=== PATIENT | female | born 1960 | race African-American/Black ===

== ENCOUNTER 2017-12-01 19:23 | Inpatient (IN) | payer MEDICARE ==
[~2017-12-01] VITALS: Ht 177.8 cm; Wt 99.8 kg
[~2017-12-01 19:23] MED LIST: ALPRAZOLAM0.25 MG PO; AMLODIPINE BESY10 MG PO; Aspirin PO; CEFDINIR300 MG PO; CRESTOR20 MG PO; CYCLOBENZAPRINE10 MG PO; IPRATROPIU0.2 MG/1 M NEB; LIDOCAINE1 EA TP; LISINOPRIL10 MG PO; NORCO 10-325 T1 EACH PO; NORCO 5-325 TA1 EACH PO; PANTOPRAZOLE SO40 MG PO; PAZEO OP; PREDNISONE20 MG PO; QUETIAPINE FUM100 MG PO; SYNTHROID100 MCG PO; TOPROL XL50 MG PO; TRIAMTERENE-HCTZ1 EA PO; VALACYCLOVIR1000 MG PO
[2017-12-01] MEDS ORDERED: ALBUTEROL SULF 0.083% NEB SOLN 3 ML NEB NEB STA (19:30)
[2017-12-01] MEDS ORDERED: CEFTRIAXONE SOD 1 GM VIAL IV ONE (19:30)
[2017-12-01] MEDS ORDERED: ASPIRIN 81 MG CHEW TAB PO ONE ×2 (19:30→20:15)
[2017-12-01] MEDS ORDERED: SODIUM CHLORIDE 0.9% 500ML 500 ML IV STA (19:30)
[2017-12-01 19:46] LABS: BASOPHILS # (AUTO) 0.1 (0.0-0.1); BASOPHILS % 0.8 % (0.0-1.0); EOSINOPHILS # (AUTO) 0.2 (0.0-0.4); EOSINOPHILS % 2.2 % (0.0-6.0); HEMATOCRIT 42.3 % (34.2-44.1); HEMOGLOBIN 13.7 g/dL (12.0-16.0); LYMPHOCYTES # (AUTO) 3.2 (1.0-3.2); LYMPHOCYTES % 29.6 % (18.0-39.1); MEAN CORPUSCULAR HEMOGLOBIN 32.6 pg (28-32); MEAN CORPUSCULAR HGB CONC 32.4 g/dL (31-35); MEAN CORPUSCULAR VOLUME 100.7 fL (81-99); MONOCYTES % 9.3 % (4.4-11.3); NEUTROPHILS # (AUTO) 6.3 (2.1-6.9); NEUTROPHILS % 57.6 % (38.7-80.0); PLATELET COUNT 313 x10e3/uL (140-360); RED CELL DISTRIBUTION WIDTH 12.4 % (11.7-14.4)
[2017-12-01] MEDS ORDERED: IPRATROPIUM BROMIDE 0.02% 2.5 ML NEB NEB ONE (20:00)
[2017-12-01] MEDS ORDERED: AZITHROMYCIN 500MG/NS 250 ML 250 ML IV ONE (20:00)
[2017-12-01 20:07] LABS: INR 0.96; PARTIAL THROMBOPLASTIN TIME 25.9 seconds (23.8-35.5)
[2017-12-01] MEDS ORDERED: METHYLPREDNISOLONE SOD SUCC 125 MG/2ML VIAL IV ONE (20:15)
[2017-12-01] MEDS ORDERED: ONDANSETRON HCL INJ 2 MG/ML VIAL IV PRN (20:15)
[2017-12-01] MEDS ORDERED: FAMOTIDINE 20 MG/2 ML VIAL IV SCH (20:15)
[2017-12-01 20:16] LABS: ALBUMIN 3.8 g/dL (3.5-5.0); ALBUMIN/GLOBULIN RATIO 0.9 (0.8-2.0); ANION GAP 17.2 mmol/L (8-16); CALCIUM 9.7 mg/dL (8.4-10.2); CREATININE, SERUM 1.13 mg/dL (0.57-1.11); MAGNESIUM 2.1 MG/DL (1.3-2.1); POTASSIUM 4.2 mmol/L (3.5-5.1)
[2017-12-01 20:22] LABS: CREATINE KINASE MB 1.4 ng/mL (0-5.0); PLATELET ESTIMATE ADEQUATE; PLATELET MORPHOLOGY COMMENT NORMAL; RBC MORPHOLOGY COMMENT NORMAL
--- NOTE | 2017-12-01 21:36 | Diagnostic Imaging Report ---
EXAMINATION: CHEST 2 VIEWS INDICATION: COPD. COMPARISON: 07/04/2016 FINDINGS: TUBES and LINES: None. LUNGS: Lungs are not well inflated. There are bibasilar atelectasis. There is mild prominence of the central pulmonary vasculature, consistent with pulmonary venous congestion. PLEURA: No pleural effusion or pneumothorax. HEART AND MEDIASTINUM: Cardiac size is mildly enlarged. BONES AND SOFT TISSUES: No acute osseous lesion. Soft tissues are unremarkable. UPPER ABDOMEN: No free air under the diaphragm. IMPRESSION: No acute thoracic abnormality. Signed by: Dr. Ian Frederick M.D. on 12/01/2017 9:33 PM
[2017-12-01 22:49] VITALS: BP 132/76
[2017-12-01 23:10] VITALS: BP 132/76
[2017-12-01] MEDS: IPRATROPIUM BROMIDE 0.02% 2.5 ML NEB NEB SCH (23:25)
[2017-12-01] MEDS: ALBUTEROL SULF 0.083% NEB SOLN 3 ML NEB NEB SCH (23:25)
[2017-12-02] VITALS (9 sets, daily range): BP systolic 132–178; BP diastolic 74–101
[2017-12-02] MEDS: BENZONATATE 100 MG CAP PO PRN ×2 (01:11→11:00)
[2017-12-02] MEDS: HYDROCODONE/APAP 5MG-325MG TAB PO PRN ×3 (01:11→21:52)
[2017-12-02 01:50] LABS: BILIRUBIN,URINE NEGATIVE (NEGATIVE); CLARITY,URINE CLEAR (CLEAR); COLOR,URINE YELLOW (YELLOW); KETONES,URINE NEGATIVE (NEGATIVE); LEUKOCYTE ESTERASE ,URINE NEGATIVE (NEGATIVE); NITRITE,URINE NEGATIVE (NEGATIVE); PROTEIN,URINE DIPSTICK NEGATIVE (NEGATIVE); URINE UROBILINOGEN 0.2 mg/dL (0.2 - 1)
[2017-12-02 01:56] LABS: BACTERIA,URINE MANY /HPF; EPITHELIAL CELLS,URINE FEW /LPF
[2017-12-02] MEDS: IPRATROPIUM BROMIDE 0.02% 2.5 ML NEB NEB SCH ×6 (03:00→23:20)
[2017-12-02] MEDS: ALBUTEROL SULF 0.083% NEB SOLN 3 ML NEB NEB SCH ×2 (03:00→07:55)
[2017-12-02 05:40] LABS: BLOOD UREA NITROGEN 16 mg/dL (7-26); BUN/CREATININE RATIO 16 (6-25); CALCIUM 9.4 mg/dL (8.4-10.2); CARBON DIOXIDE 23 mmol/L (22-29); CHLORIDE 101 mmol/L (98-107); CHOL/HDL RATIO 4.3 (3.0-3.6); CHOLESTEROL 191 MD/DL (0-199); CREATININE, SERUM 0.99 mg/dL (0.57-1.11); EST GLOMERULAR FILTRATION RATE > 60 ML/MIN (60-); GLUCOSE 190 mg/dL (74-118); HDL CHOLESTEROL 44 MG/DL (40-60); LDL CHOLESTEROL 127 MG/DL (60-130); SODIUM 138 mmol/L (136-145); TRIGLYCERIDES 102 MG/DL (0-149)
[2017-12-02] MEDS ORDERED: METHYLPREDNISOLONE SOD SUCC 125 MG/2ML VIAL IV SCH (06:00)
[2017-12-02 06:36] LABS: BASOPHILS % 0.3 % (0.0-1.0); HEMATOCRIT 40.2 % (34.2-44.1); HEMOGLOBIN 13.3 g/dL (12.0-16.0); LYMPHOCYTES # (AUTO) 1.5 (1.0-3.2); LYMPHOCYTES % 10.1 % (18.0-39.1); MEAN CORPUSCULAR HGB CONC 33.1 g/dL (31-35); MEAN CORPUSCULAR VOLUME 99.8 fL (81-99); MONOCYTES # (AUTO) 0.2 (0.2-0.8); MONOCYTES % 1.4 % (4.4-11.3); NEUTROPHILS % 87.5 % (38.7-80.0); PLATELET COUNT 304 x10e3/uL (140-360); RED BLOOD COUNT 4.03 x10e6/uL (3.6-5.1)
[2017-12-02 07:04] LABS: CREATINE KINASE MB 1.4 ng/mL (0-5.0)
[2017-12-02] MEDS: ASPIRIN 81 MG ENTERIC COATED PO SCH (10:18)
[2017-12-02] MEDS: QUETIAPINE FUMARATE 100 MG TAB PO SCH (10:18)
[2017-12-02] MEDS: LISINOPRIL 20 MG TAB PO SCH (10:18)
[2017-12-02] MEDS: ALPRAZOLAM 0.25 MG TAB PO SCH (11:00)
[2017-12-02] MEDS ORDERED: DEXTROSE 50% SYRINGE 50 ML IV PRN (12:15)
[2017-12-02] MEDS ORDERED: HYDRALAZINE HCL 20 MG/ML VIAL IV PRN (12:15)
[2017-12-02 12:36] LABS: CREATINE KINASE MB 1.9 ng/mL (0-5.0)
[2017-12-02] MEDS: GUAIFENESIN 600MG/DEXTROMETHORPHAN 30MG TABSR PO SCH ×2 (12:50→17:00)
[2017-12-02] MEDS: METHYLPREDNISOLONE SOD SUCC 40 MG/ML VIAL IV SCH ×2 (13:02→21:26)
[2017-12-02] MEDS ORDERED: BENZONATATE 100 MG CAP PO PRN (14:00)
--- NOTE | 2017-12-02 15:43 | History and Physical ---
PRIMARY CARE PROVIDER: Dr. Pineda Agustin. CHIEF COMPLAINT: Shortness of breath. HISTORY OF PRESENT ILLNESS: Ms. Patel is a 57-year-old lady presenting with several days of worsening shortness of breath, wheezing and hacking cough that is producing small amounts of sputum. REVIEW OF SYSTEMS: She denies fever, chills or weight loss. Denies sinus congestion or sore throat. She denies chest pain or palpitations. She has shortness of breath, wheezing and cough. She denies abdominal pain, nausea, vomiting or melena. She denies dysuria or flank pain. She denies rash or pruritus. Denies joint pain or swelling. Has chronic low back pain. She denies bleeding or bruising. She denies headache, vertigo or loss of consciousness. She denies depression, agitation, homicidal or suicidal ideation. She does have anxiety issues. PAST MEDICAL HISTORY: Significant for hypertension, generalized anxiety disorder, degenerative disease of the spine and COPD. CURRENT MEDICATIONS: Lisinopril 20 mg daily. Hydrocodone 5/325 as needed. Alprazolam 0.25 mg daily. Seroquel 50 mg daily. Protonix 40 mg daily. Nebulizer treatments q.4 hours. Aspirin 325 mg daily. ALLERGIES: SHE HAS A STATED ALLERGY TO MORPHINE. PAST SURGICAL HISTORY: She has a history of cholecystectomy, hernia repair. She had knee surgery and bilateral rotator cuff surgery. FAMILY HISTORY: Significant for scattered hypertension. SOCIAL HISTORY: The patient is . Hebrew is her primary language. She quit smoking 2 years ago. She does not drink or use illegal drugs. She is generally independently functioning. PHYSICAL EXAM: PSYCHIATRIC: She is alert and oriented times 3 with normal mood and affect. CONSTITUTIONAL: She has a normal body habitus. Is in no acute distress. VITAL SIGNS: Blood pressure 172/101. Pulse 109 and regular. Respiratory rate 20. O2 sat 93% on 2 liter nasal cannula. Temperature 97.3. HEENT: Head is atraumatic. Eyes are anicteric with clear conjunctivae. Ears and nares are without erythema or discharge. Oropharynx is clear. NECK: Supple with no mass or thyromegaly. LYMPHATIC SYSTEM: She has no palpable cervical, axillary or inguinal adenopathy. CARDIOVASCULAR: She has a regular rate and rhythm without murmur or extra heart sounds. No carotid bruits. No peripheral edema. She has weak dorsal pedal pulses. RESPIRATORY: Lungs revealed diminished breath sounds with some expiratory wheezing particularly end expiration with hacking nonproductive cough. Normal respiratory effort. GASTROINTESTINAL: Her abdomen is soft without organomegaly, masses or tenderness. Normal bowel sounds present. CUTANEOUS: Her skin is warm and dry to touch with no rash or skin breakdown. MUSCULOSKELETAL: Joints are in normal alignment without erythema or swelling. She has no calf tenderness. NEUROLOGIC: Exam is nonfocal with intact cranial nerves and no motor or sensory deficits. DIAGNOSTIC STUDIES: Chest x-ray shows no acute disease. UA shows 6 to 10 white cells with many bacteria. Lactic acid is 38, which is elevated. BNP 16.0. Cholesterol 191. Triglyceride 102. HDL 44. LDL 127. Troponin is 0.005 and 0.003. Her white count is 14.8, which is elevated with 88% neutrophils. Hemoglobin 13.3, hematocrit 40.2 and platelet count 304,000. Coags are normal. Chemistry shows normal electrolytes. CO2 is 23. Creatinine 0.99. BUN 16 for a normal GFR. Calcium is 9.4. Glucose is 190. Transaminases, bilirubin and alk phos are all normal. IMPRESSION AND PLAN 1. Sepsis, meets criteria based on elevated white count, tachycardia and lactic acid elevation. The patient will be treated empirically with IV Zithromax and Rocephin for bronchopneumonia, COPD and for urinary tract infection. 2. Acute exacerbation of chronic obstructive pulmonary disease. The patient will get supplemental oxygen, aggressive nebulizer treatments, IV Solu-Medrol as well as IV Zithromax, Rocephin and Mucinex for expectoration. 3. Urinary tract infection. The patient was started on IV Rocephin empirically with cultures pending. 4. Hypertension which is reasonably controlled. Will continue her lisinopril and p.r.n. hydralazine. 5. Anxiety. Will continue her Xanax and Seroquel. 6. Hyperglycemia, likely due to steroids. Will use sliding scale insulin and check an A1c. 7. For prophylaxis, the patient will be on SCDs for DVT prophylaxis and Pepcid for GI prophylaxis. Job#: [id number]
[2017-12-02] MEDS: METOPROLOL TARTRATE INJ 1 MG/ML VIAL IV PRN (16:10)
[2017-12-02] MEDS: FAMOTIDINE 20 MG TAB PO SCH (16:36)
[2017-12-02] MEDS: INSULIN REGULAR, HUMAN 100 UNIT/1 ML 3ML VIAL SQ SCH ×2 (16:36→21:26)
[2017-12-02] MEDS: AZITHROMYCIN 500MG/NS 250 ML 250 ML IV SCH (19:05)
[2017-12-02] MEDS: ALBUTEROL/IPRATROPIUM 3 ML NEB NEB SCH ×2 (19:40→23:20)
[2017-12-02] MEDS ORDERED: CEFTRIAXONE SOD 1 GM VIAL IV SCH (20:00)
[2017-12-02] MEDS: CEFTRIAXONE SOD 1 GM VIAL IV SCH (21:25)
[2017-12-02] MEDS: ZOLPIDEM TARTRATE 10 MG TAB PO PRN (21:49)
[2017-12-03] VITALS (7 sets, daily range): BP systolic 133–169; BP diastolic 65–97
[2017-12-03] MEDS: GUAIFENESIN 600MG/DEXTROMETHORPHAN 30MG TABSR PO SCH ×4 (00:21→18:10)
[2017-12-03] MEDS: ALBUTEROL/IPRATROPIUM 3 ML NEB NEB SCH ×6 (03:15→22:55)
[2017-12-03] MEDS: IPRATROPIUM BROMIDE 0.02% 2.5 ML NEB NEB SCH ×6 (03:15→23:00)
[2017-12-03 05:14] LABS: BASOPHILS # (AUTO) 0.1 (0.0-0.1); BASOPHILS % 0.2 % (0.0-1.0); HEMATOCRIT 39.8 % (34.2-44.1); HEMOGLOBIN 13.1 g/dL (12.0-16.0); LYMPHOCYTES # (AUTO) 1.6 (1.0-3.2); LYMPHOCYTES % 5.1 % (18.0-39.1); MEAN CORPUSCULAR HEMOGLOBIN 33.1 pg (28-32); MEAN CORPUSCULAR HGB CONC 32.9 g/dL (31-35); MEAN CORPUSCULAR VOLUME 100.5 fL (81-99); MONOCYTES # (AUTO) 1.7 (0.2-0.8); MONOCYTES % 5.6 % (4.4-11.3); NEUTROPHILS # (AUTO) 26.9 (2.1-6.9); NEUTROPHILS % 87.2 % (38.7-80.0); PLATELET COUNT 302 x10e3/uL (140-360); RED BLOOD COUNT 3.96 x10e6/uL (3.6-5.1); RED CELL DISTRIBUTION WIDTH 12.1 % (11.7-14.4)
[2017-12-03 05:46] LABS: ANION GAP 17.1 mmol/L (8-16); BLOOD UREA NITROGEN 19 mg/dL (7-26); BUN/CREATININE RATIO 18 (6-25); CALCIUM 9.6 mg/dL (8.4-10.2); CARBON DIOXIDE 24 mmol/L (22-29); CHLORIDE 99 mmol/L (98-107); CREATININE, SERUM 1.03 mg/dL (0.57-1.11); EST GLOMERULAR FILTRATION RATE > 60 ML/MIN (60-); GLUCOSE 269 mg/dL (74-118); MAGNESIUM 1.9 MG/DL (1.3-2.1); POTASSIUM 4.1 mmol/L (3.5-5.1); SODIUM 136 mmol/L (136-145)
[2017-12-03 05:58] LABS: THYROID STIMULATING HORMONE 0.237 uIU/mL (0.350-4.940)
[2017-12-03] MEDS: METHYLPREDNISOLONE SOD SUCC 40 MG/ML VIAL IV SCH ×2 (06:26→18:10)
[2017-12-03] MEDS: FAMOTIDINE 20 MG TAB PO SCH ×2 (07:56→16:30)
[2017-12-03] MEDS: INSULIN REGULAR, HUMAN 100 UNIT/1 ML 3ML VIAL SQ SCH ×4 (08:06→21:36)
[2017-12-03] MEDS ORDERED: ACETAMINOPHEN 325 MG TAB PO PRN (08:15)
[2017-12-03] MEDS ORDERED: ACETYLCYSTEINE 20% INHAL SOLN 30 ML VIAL INH SCH (08:30)
[2017-12-03 08:59] LABS: LYMPHOCYTES % (MANUAL) 7 % (19-48); MONOCYTES % (MANUAL) 5 % (3.4-9.0); NEUTROPHILS % (MANUAL) 88 % (40-74); PLATELET ESTIMATE ADEQUATE; PLATELET MORPHOLOGY COMMENT NORMAL; RBC MORPHOLOGY COMMENT NORMAL
[2017-12-03 09:00] LABS: ANISOCYTOSIS SLIGHT
[2017-12-03] MEDS: CEFTRIAXONE SOD 1 GM VIAL IV SCH ×2 (09:19→21:26)
[2017-12-03] MEDS: QUETIAPINE FUMARATE 100 MG TAB PO SCH (09:19)
[2017-12-03] MEDS: ASPIRIN 81 MG ENTERIC COATED PO SCH (09:19)
[2017-12-03] MEDS: ALPRAZOLAM 0.25 MG TAB PO SCH (09:19)
[2017-12-03] MEDS ORDERED: SODIUM CHLORIDE 0.9% 250ML 250 ML ONE (09:21)
[2017-12-03] MEDS: AZITHROMYCIN 500MG/NS 250 ML 250 ML IV SCH (09:28)
[2017-12-03] MEDS: LISINOPRIL 20 MG TAB PO SCH (09:28)
[2017-12-03] MEDS: HYDROCODONE/APAP 5MG-325MG TAB PO PRN (10:32)
[2017-12-03] MEDS: METOPROLOL TARTRATE INJ 1 MG/ML VIAL IV PRN (10:32)
[2017-12-03] MEDS ORDERED: ASPIRIN 81 MG CHEW TAB PO ONE (10:45)
[2017-12-03] MEDS: ACETYLCYSTEINE 200 MG/ML 4ML VIAL INH SCH ×5 (11:25→22:45)
[2017-12-03 11:37] LABS: CREATINE KINASE MB 2.1 ng/mL (0-5.0)
--- NOTE | 2017-12-03 16:22 | Consultation ---
DATE OF CONSULTATION: December 03, 2017 ENDOCRINE CONSULTATION PATIENT OF: Dr. Agustin. Thank you very much for referring this patient. HPI: This is a 57-year-old black female who is referred to me for evaluation of abnormal thyroid function tests. The patient tells me that she had history of hypothyroidism in the past and was taking the thyroid pills in the past. Patient is not taking any thyroid pill for last several weeks. Patient has longstanding history of COPD. She is an ex-smoker. She came to the hospital with shortness of breath and was put on Solu-Medrol. On further evaluation, her TSH was found to be low. Her other medical problems include history of hypertension, hyperlipidemia, and status post cardiac arrest. Her routine medications include lisinopril, hydrochlorothiazide, labetalol, and Norvasc. She has also steroid-induced hyperglycemia. PHYSICAL EXAMINATION GENERAL: Today, the patient is alert, awake, a little bit apprehensive. She has prominent eyes, mild lid lag. VITAL SIGNS: Her heart rate is around 78, blood pressure 140/80 mmHg. HEENT: Essentially unremarkable. Thyroid is palpable. Clinically, she looks near euthyroid. CHEST: Bilateral vesicular breathing. She has bilateral bronchospasm. CARDIAC: First and second heart sound. There is no third or fourth heart sound. Ejection systolic murmur, grade 2/6. EXTREMITIES: Patient has also mild pedal edema. LAB EVALUATION: TSH is 0.237. Her blood sugars have been ranging between 151-207. CLINICAL IMPRESSION 1. Low TSH, rule out hyperthyroidism, it could be also related to being on IV steroids. 2. Chronic obstructive pulmonary disease with acute exacerbation. 3. Ex-smoker. 4. Hypertension. 5. Hyperlipidemia. 6. Steroid-induced hyperglycemia. PLAN: The plan at this time is to do a free T3, free T4, TSH, and peroxidase antibody and also do a hemoglobin A1c. Thanks again for referring this patient. I will be following this patient with you. Job#: [id number] CÉSAR
[2017-12-03] MEDS: PROMETHAZINE/CODEINE 5 ML UDC PO PRN (19:03)
[2017-12-04] VITALS (9 sets, daily range): BP systolic 138–180; BP diastolic 70–97
[2017-12-04] MEDS: GUAIFENESIN 600MG/DEXTROMETHORPHAN 30MG TABSR PO SCH ×5 (00:28→23:54)
[2017-12-04] MEDS: ALBUTEROL/IPRATROPIUM 3 ML NEB NEB SCH ×6 (02:20→22:30)
[2017-12-04] MEDS: ACETYLCYSTEINE 200 MG/ML 4ML VIAL INH SCH ×6 (02:20→22:30)
[2017-12-04] MEDS: IPRATROPIUM BROMIDE 0.02% 2.5 ML NEB NEB SCH ×6 (03:00→23:00)
[2017-12-04 05:20] LABS: BASOPHILS % 0.2 % (0.0-1.0); HEMATOCRIT 40.2 % (34.2-44.1); HEMOGLOBIN 13.1 g/dL (12.0-16.0); LYMPHOCYTES # (AUTO) 2.1 (1.0-3.2); MEAN CORPUSCULAR HEMOGLOBIN 32.8 pg (28-32); MEAN CORPUSCULAR HGB CONC 32.6 g/dL (31-35); MEAN CORPUSCULAR VOLUME 100.8 fL (81-99); MONOCYTES # (AUTO) 1.2 (0.2-0.8); NEUTROPHILS # (AUTO) 19.4 (2.1-6.9); NEUTROPHILS % 83.6 % (38.7-80.0); PLATELET COUNT 314 x10e3/uL (140-360); RED BLOOD COUNT 3.99 x10e6/uL (3.6-5.1); RED CELL DISTRIBUTION WIDTH 12.2 % (11.7-14.4)
[2017-12-04 05:50] LABS: ANION GAP 16.1 mmol/L (8-16); BLOOD UREA NITROGEN 25 mg/dL (7-26); BUN/CREATININE RATIO 27 (6-25); CALCIUM 9.4 mg/dL (8.4-10.2); CARBON DIOXIDE 28 mmol/L (22-29); CHLORIDE 100 mmol/L (98-107); CREATININE, SERUM 0.91 mg/dL (0.57-1.11); EST GLOMERULAR FILTRATION RATE > 60 ML/MIN (60-); GLUCOSE 160 mg/dL (74-118); POTASSIUM 4.1 mmol/L (3.5-5.1); SODIUM 140 mmol/L (136-145)
[2017-12-04] MEDS: METHYLPREDNISOLONE SOD SUCC 40 MG/ML VIAL IV SCH ×2 (05:58→17:25)
[2017-12-04 06:16] LABS: FREE THYROXINE INDEX 1.7036 (1.4-3.8); THYROID STIMULATING HORMONE 0.206 uIU/mL (0.350-4.940)
[2017-12-04 06:37] LABS: LYMPHOCYTES % (MANUAL) 12 % (19-48); MONOCYTES % (MANUAL) 5 % (3.4-9.0); NEUTROPHILS % (MANUAL) 81 % (40-74)
[2017-12-04 06:38] LABS: PLATELET ESTIMATE ADEQUATE; PLATELET MORPHOLOGY COMMENT FEW LARGE; RBC MORPHOLOGY COMMENT NORMAL
[2017-12-04] MEDS: INSULIN REGULAR, HUMAN 100 UNIT/1 ML 3ML VIAL SQ SCH ×4 (07:30→20:16)
[2017-12-04] MEDS: FAMOTIDINE 20 MG TAB PO SCH ×2 (07:50→16:36)
[2017-12-04] MEDS: AZITHROMYCIN 500MG/NS 250 ML 250 ML IV SCH (09:11)
[2017-12-04] MEDS: ALPRAZOLAM 0.25 MG TAB PO SCH (09:11)
[2017-12-04] MEDS: ASPIRIN 81 MG ENTERIC COATED PO SCH (09:11)
[2017-12-04] MEDS: LISINOPRIL 20 MG TAB PO SCH (09:11)
[2017-12-04] MEDS: QUETIAPINE FUMARATE 100 MG TAB PO SCH (09:11)
[2017-12-04] MEDS: CEFTRIAXONE SOD 1 GM VIAL IV SCH ×2 (09:11→20:15)
[2017-12-04] MEDS: PROMETHAZINE/CODEINE 5 ML UDC PO PRN (14:33)
[2017-12-04] MEDS: AZELASTINE HCL 137 MCG NASAL SPRAY NS SCH (17:29)
[2017-12-04] MEDS: METOPROLOL TARTRATE INJ 1 MG/ML VIAL IV PRN (20:10)
[2017-12-05] VITALS (7 sets, daily range): BP systolic 163–186; BP diastolic 84–102
[2017-12-05] MEDS: ALBUTEROL/IPRATROPIUM 3 ML NEB NEB SCH ×6 (02:55→22:45)
[2017-12-05] MEDS: ACETYLCYSTEINE 200 MG/ML 4ML VIAL INH SCH ×6 (02:55→22:45)
[2017-12-05] MEDS: IPRATROPIUM BROMIDE 0.02% 2.5 ML NEB NEB SCH ×6 (03:00→23:00)
[2017-12-05] MEDS: PROMETHAZINE/CODEINE 5 ML UDC PO PRN (03:22)
[2017-12-05 04:48] LABS: BASOPHILS # (AUTO) 0.1 (0.0-0.1); BASOPHILS % 0.2 % (0.0-1.0); HEMOGLOBIN 13.2 g/dL (12.0-16.0); LYMPHOCYTES # (AUTO) 2.6 (1.0-3.2); MEAN CORPUSCULAR HEMOGLOBIN 32.7 pg (28-32); MONOCYTES % 8.4 % (4.4-11.3); NEUTROPHILS % 76.9 % (38.7-80.0); PLATELET COUNT 330 x10e3/uL (140-360); RED BLOOD COUNT 4.04 x10e6/uL (3.6-5.1); RED CELL DISTRIBUTION WIDTH 11.9 % (11.7-14.4)
[2017-12-05] MEDS: METOPROLOL TARTRATE INJ 1 MG/ML VIAL IV PRN ×2 (05:00→22:00)
[2017-12-05 05:15] LABS: ANION GAP 17.1 mmol/L (8-16); BLOOD UREA NITROGEN 29 mg/dL (7-26); BUN/CREATININE RATIO 32 (6-25); CALCIUM 9.3 mg/dL (8.4-10.2); CARBON DIOXIDE 28 mmol/L (22-29); CHLORIDE 100 mmol/L (98-107); EST GLOMERULAR FILTRATION RATE > 60 ML/MIN (60-); GLUCOSE 155 mg/dL (74-118); POTASSIUM 4.1 mmol/L (3.5-5.1); SODIUM 141 mmol/L (136-145)
[2017-12-05] MEDS: GUAIFENESIN 600MG/DEXTROMETHORPHAN 30MG TABSR PO SCH ×4 (05:19→23:35)
[2017-12-05] MEDS: METHYLPREDNISOLONE SOD SUCC 40 MG/ML VIAL IV SCH ×2 (05:19→17:47)
[2017-12-05 07:01] LABS: LYMPHOCYTES % (MANUAL) 15 % (19-48); MONOCYTES % (MANUAL) 7 % (3.4-9.0); NEUTROPHILS % (MANUAL) 75 % (40-74)
[2017-12-05 07:02] LABS: ANISOCYTOSIS SLIGHT; MYELOCYTES % (MANUAL) 2 % (0-0); PLATELET ESTIMATE ADEQUATE; PLATELET MORPHOLOGY COMMENT NORMAL; RBC MORPHOLOGY COMMENT NORMAL
[2017-12-05] MEDS: FAMOTIDINE 20 MG TAB PO SCH ×2 (07:30→16:30)
[2017-12-05] MEDS: INSULIN REGULAR, HUMAN 100 UNIT/1 ML 3ML VIAL SQ SCH ×4 (07:30→22:23)
[2017-12-05] MEDS: AZITHROMYCIN 500MG/NS 250 ML 250 ML IV SCH (09:41)
[2017-12-05] MEDS: ASPIRIN 81 MG ENTERIC COATED PO SCH (09:41)
[2017-12-05] MEDS: CEFTRIAXONE SOD 1 GM VIAL IV SCH ×2 (09:41→22:00)
[2017-12-05] MEDS: AZELASTINE HCL 137 MCG NASAL SPRAY NS SCH ×2 (09:41→17:00)
[2017-12-05] MEDS: LISINOPRIL 20 MG TAB PO SCH (09:42)
[2017-12-05] MEDS: ALPRAZOLAM 0.25 MG TAB PO SCH (09:42)
[2017-12-05] MEDS: QUETIAPINE FUMARATE 100 MG TAB PO SCH (09:42)
[2017-12-06] VITALS: BP 176/87
[2017-12-06] MEDS: HYDROCODONE/APAP 5MG-325MG TAB PO PRN ×2 (00:47→05:15)
[2017-12-06] MEDS: ZOLPIDEM TARTRATE 10 MG TAB PO PRN (01:06)
[2017-12-06] MEDS: ALBUTEROL/IPRATROPIUM 3 ML NEB NEB SCH ×3 (02:50→10:15)
[2017-12-06] MEDS: ACETYLCYSTEINE 200 MG/ML 4ML VIAL INH SCH ×3 (02:50→10:15)
[2017-12-06] MEDS: IPRATROPIUM BROMIDE 0.02% 2.5 ML NEB NEB SCH ×3 (03:00→10:28)
[2017-12-06 04:00] VITALS: BP 194/92
[2017-12-06 04:48] LABS: BASOPHILS # (AUTO) 0.1 (0.0-0.1); BASOPHILS % 0.3 % (0.0-1.0); HEMATOCRIT 40.2 % (34.2-44.1); HEMOGLOBIN 13.5 g/dL (12.0-16.0); LYMPHOCYTES # (AUTO) 2.8 (1.0-3.2); LYMPHOCYTES % 13.3 % (18.0-39.1); MEAN CORPUSCULAR HEMOGLOBIN 33.2 pg (28-32); MEAN CORPUSCULAR HGB CONC 33.6 g/dL (31-35); MEAN CORPUSCULAR VOLUME 98.8 fL (81-99); MONOCYTES % 9.2 % (4.4-11.3); NEUTROPHILS # (AUTO) 15.8 (2.1-6.9); NEUTROPHILS % 74.2 % (38.7-80.0); PLATELET COUNT 333 x10e3/uL (140-360); RED BLOOD COUNT 4.07 x10e6/uL (3.6-5.1); RED CELL DISTRIBUTION WIDTH 12.1 % (11.7-14.4)
[2017-12-06 05:12] LABS: ANION GAP 15.9 mmol/L (8-16); BLOOD UREA NITROGEN 29 mg/dL (7-26); BUN/CREATININE RATIO 33 (6-25); CALCIUM 9.2 mg/dL (8.4-10.2); CARBON DIOXIDE 28 mmol/L (22-29); CHLORIDE 98 mmol/L (98-107); CREATININE, SERUM 0.88 mg/dL (0.57-1.11); EST GLOMERULAR FILTRATION RATE > 60 ML/MIN (60-); GLUCOSE 172 mg/dL (74-118); MAGNESIUM 2.1 MG/DL (1.3-2.1); POTASSIUM 3.9 mmol/L (3.5-5.1); SODIUM 138 mmol/L (136-145)
[2017-12-06] MEDS: METOPROLOL TARTRATE INJ 1 MG/ML VIAL IV PRN (05:14)
[2017-12-06] MEDS: GUAIFENESIN 600MG/DEXTROMETHORPHAN 30MG TABSR PO SCH ×2 (05:14→12:06)
[2017-12-06 07:30] VITALS: BP 197/103
[2017-12-06] MEDS: INSULIN REGULAR, HUMAN 100 UNIT/1 ML 3ML VIAL SQ SCH ×2 (07:30→11:30)
[2017-12-06] MEDS: FAMOTIDINE 20 MG TAB PO SCH (07:30)
[2017-12-06 07:44] LABS: LYMPHOCYTES % (MANUAL) 9 % (19-48); METAMYELOCYTES % (MANUAL) 1 % (0-0); MONOCYTES % (MANUAL) 9 % (3.4-9.0); MYELOCYTES % (MANUAL) 2 % (0-0); NEUTROPHILS % (MANUAL) 78 % (40-74)
[2017-12-06 07:45] LABS: ANISOCYTOSIS SLIGHT; PLATELET ESTIMATE ADEQUATE; PLATELET MORPHOLOGY COMMENT FEW LARGE; RBC MORPHOLOGY COMMENT NORMAL
[2017-12-06 08:00] VITALS: BP 197/103
[2017-12-06] MEDS: ASPIRIN 81 MG ENTERIC COATED PO SCH (08:44)
[2017-12-06] MEDS: LISINOPRIL 20 MG TAB PO SCH (08:44)
[2017-12-06] MEDS: CEFTRIAXONE SOD 1 GM VIAL IV SCH (08:44)
[2017-12-06] MEDS: AZELASTINE HCL 137 MCG NASAL SPRAY NS SCH (08:44)
[2017-12-06] MEDS: QUETIAPINE FUMARATE 100 MG TAB PO SCH (08:44)
[2017-12-06] MEDS: AZITHROMYCIN 500MG/NS 250 ML 250 ML IV SCH (08:44)
[2017-12-06] MEDS: ALPRAZOLAM 0.25 MG TAB PO SCH (08:45)
[2017-12-06] MEDS ORDERED: METOPROLOL SUCCINATE 25 MG TAB XL PO SCH (09:00)
[2017-12-06] MEDS ORDERED: PREDNISONE 10 MG TAB PO SCH (09:00)
[2017-12-06] MEDS ORDERED: NIFEDIPINE CR 30 MG TAB PO SCH (11:30)
[2017-12-06 12:00] VITALS: BP 176/88
[2017-12-06] MEDS ORDERED: PANTOPRAZOLE SO40 MG PO (12:17)
[2017-12-06] MEDS ORDERED: NORCO 10-325 T1 EACH (12:17)
[2017-12-06] MEDS ORDERED: CATAPRES-TTS 11 EACH TD (12:17)
[2017-12-06] MEDS ORDERED: LISINOPRIL20 MG PO (12:17)
[2017-12-06] MEDS ORDERED: CLONIDINE HCL0.1 MG PO (12:17)
[2017-12-06] MEDS ORDERED: AMLODIPINE BESY10 MG PO (12:17)
[2017-12-06] MEDS ORDERED: BENZONATATE100 MG PO (12:17)
[2017-12-06] MEDS ORDERED: SOMA350 MG PO (12:17)
[2017-12-06] MEDS ORDERED: LABETALOL HCL200 MG PO (12:17)
[2017-12-06] MEDS ORDERED: CLONIDINE HCL 0.1 MG TAB PO PRN (12:45)
[2017-12-06] MEDS ORDERED: LABETALOL HCL 200 MG TAB PO SCH (12:45)
[2017-12-06] MEDS ORDERED: ceftin PO (12:52)
[2017-12-06] MEDS ORDERED: MUCINEX DM ER1 EACH PO (12:52)
[2017-12-06] MEDS ORDERED: prednsione PO (12:52)
--- NOTE | 2017-12-06 17:23 | Discharge Summary ---
ADMISSION DIAGNOSES 1. Sepsis. 2. Acute exacerbation of chronic obstructive pulmonary disease. 3. Urinary tract infection. 4. Hypertension. 5. Anxiety. 6. Hyperglycemia. DISCHARGE DIAGNOSES 1. Sepsis. 2. Acute exacerbation of chronic obstructive pulmonary disease. 3. Urinary tract infection. 4. Hypertension. 5. Anxiety. 6. Hyperglycemia. HISTORY: Patient has a history of hypertension, anxiety, degenerative disease of the spine and COPD. HOSPITAL COURSE: A 57-year-old female presents with several days of worsening shortness of breath, wheezing, hacking cough that is producing a small amount of sputum. On admission patient was started on Zithromax, Rocephin, Mucinex and IV Solu-Medrol. Chest x-ray was negative. Blood cultures were negative. Urine culture was negative. Patient resumed home medications for hypertension and anxiety. The hyperglycemia was likely due to steroids, and her A1c was 5.4%. Patient was slowly weaned off of IV steroids down to p.o. steroids. She will discharge home and follow up with primary care in 1 to 2 weeks. She will get 2 more days of Rocephin p.o., Mucinex, and tapered dose of prednisone. She will resume home medications for everything else. Patient understands discharge instructions and agrees with the plan. Vital signs stable, patient afebrile. Dictated by: Juliana Suarez NP SARAH GRAY MD Job#: [id number] EV
== END 2017-12-06 14:14 | disposition home or self-care (01) | DRG 871 ==
LOC: ER 19:23 → ERHOLD 20:28 → IMCU 22:34 → OBSVTOIN 12-03 08:48 → MED/SURG2 12-03 13:16
PROVIDERS: ADMIT Internal Medicine; ATTEND Internal Medicine
DX: A41.9 Sepsis, unspecified organism (principal); J18.0 Bronchopneumonia, unspecified organism; J44.1 Chronic obstructive pulmonary disease with (acute) exacerbation; N39.0 Urinary tract infection, site not specified; J44.0 Chronic obstructive pulmonary disease with (acute) lower respiratory infection; G31.89 Other specified degenerative diseases of nervous system; M47.9 Spondylosis, unspecified; F41.9 Anxiety disorder, unspecified; I10 Essential (primary) hypertension; E03.9 Hypothyroidism, unspecified; Z79.51 Long term (current) use of inhaled steroids; D72.828 Other elevated white blood cell count; E09.9 Drug or chemical induced diabetes mellitus without complications; T38.0X5A Adverse effect of glucocorticoids and synthetic analogues, initial encounter; Z87.891 Personal history of nicotine dependence; E78.5 Hyperlipidemia, unspecified; R01.1 Cardiac murmur, unspecified; E66.9 Obesity, unspecified; Z68.31 Body mass index [BMI] 31.0-31.9, adult
CPT/HCPCS: 36415; 71046; 80048; 80053; 80061; 81001; 82550; 82553; 82948; 83036; 83605; 83735; 83880; 84436; 84439; 84443; 84479; 84481; 84484; 85025; 85610; 85730; 86376; 87040; 87086; 93005; 94640; 96372; 99284; G0378; J0456; J0696; J2920; J2930; J7040; J7050

== ENCOUNTER 2018-07-26 13:58 | Emergency (ER) | payer MEDICARE ==
[~2018-07-26] VITALS: Ht 177.8 cm; Wt 99.8 kg
[~2018-07-26 13:58] MED LIST changes: +BENZONATATE100 MG PO; +CATAPRES-TTS 11 EACH TD; +CLONIDINE HCL0.1 MG PO; +LABETALOL HCL200 MG PO; +LISINOPRIL20 MG PO; +MUCINEX DM ER1 EACH PO; +NORCO 10-325 T1 EACH; +SOMA350 MG PO; +ceftin PO; +prednsione PO
--- OUTSIDE RECORDS SUMMARY | 2018-07-26 14:02 | XMS REPORT | Clinical Summary ---
Author Author [facility] Organization [facility] Address Unknown Phone Unavailable Care Team Providers Care Building Rental Manager Name Role Phone PCP Unavailable Allergies Not on File Medications Not on file Active Problems Not on file Social History Date Tobacco Use Types Packs/Day Years Used Never Assessed Sex Assigned at Date Recorded Not on file Industry Job Start Date Occupation Not on file Not on file Not on file Travel End Travel History Travel Start No recent travel history available. Last Filed Vital Signs Not on file Plan of Treatment Not on file Results Not on fileafter 07/25/2017 Insurance Payer Benefit Subscriber ID Type Phone Address Plan / Group MEDICARE MEDICARE A xxxxxxxxxx Medicare B MEDICAID MEDICAID xxxxxxxxx Medicaid OF [place]
--- OUTSIDE RECORDS SUMMARY | 2018-07-26 14:03 | XMS REPORT | Continuity of Care Document ---
Author Author [facility] Interface Address Unknown Phone Unavailable Problems Problem Status Onset Date Classification Date Reported Comments Source Acute bacterial bronchitis 07/12/2018 07/14/2018 [facility] EAR PAIN Active 07/07/2018 [facility] Panic Disorder w/o Agoraphobia Active 07/27/2017 Diagnosis 10/07/2017 [facility] Diagnosis: Lumbar strain 12/09/2016 12/12/2016 [facility] BACK PAIN Active 12/08/2016 [facility] DX: M54.2=CERVICALGIA, M54.5=LOW BACK PA Active 09/22/2016 [facility] NECK/BACK PAIN Active 09/15/2016 [facility] [place] Discharge Diagnosis: Sciatica of right side 01/02/2015 01/05/2015 [facility] Unspecified inflammatory polyarthropathy Active Problem 07/22/2015 [facility] Hypertension Active Problem 07/22/2015 [facility] Coronary artery disease Active Problem 07/22/2015 [facility] High risk medication use Active Diagnosis 07/22/2015 [facility] Pain, joint, multiple sites Active Diagnosis 07/22/2015 [facility] Chronic pain Active Diagnosis 07/22/2015 [facility] Counseling NOS Active Diagnosis 07/22/2015 [facility] Unspecified inflammatory polyarthropathy Active Diagnosis 07/22/2015 [facility] Tobacco dependence Active Diagnosis 04/23/2015 [facility] Malignant hypertension Active Diagnosis 04/23/2015 [facility] Najam FH: Hypercholesterolemia Active Problem 07/14/2018 [facility] Hx of sciatica Active Problem 07/14/2018 [facility] History of hyperthyroidism Resolved Problem 07/14/2018 [facility], [facility] HTN - Hypertension Active Problem 07/14/2018 [facility] Bilateral low back pain Active Problem 07/14/2018 [facility] CERVICALGIA Active [facility] LOW BACK PAIN Active [facility] Medications Medication Details Route Status Patient Instructions Ordering Provider Order Date Source 12 HR Guaifenesin 600 MG Extended Release Tablet [Mucinex] 600 mg=1 tab, PO, Q12H, X 7 day, # 14 tab, 0 Refill(s) Active 07/12/2018 [facility] predniSONE 20 mg oral tablet 40 mg=2 tab, PO, Daily, X 5 day, # 10 tab, 0 Refill(s) Active 07/12/2018 [facility] 200 ACTUAT Albuterol 0.09 MG/ACTUAT Metered Dose Inhaler [ProAir HFA] 2 puff, INHALER, Q4H, PRN wheezing, coughing, or shortness of breath, # 1 ea, 0 Refill(s) Active 07/12/2018 [facility] Azithromycin 5 Day Dose Pack 250 mg oral tablet See Instructions, Take 2 tablets by mouth the first day then 1 tablet by mouth days 2-5., X 5 day, # 6 tab, 0 Refill(s) Active 07/12/2018 [facility] tramadol hydrochloride 50 MG Oral Tablet 50 mg, Route: PO, Drug form: TAB, ONCE, Dosing Weight 96.989, kg, Priority: STAT, Start date: 07/11/18 23:46:00 CDT, Stop date: 07/11/18 23:46:00 CDT Inactive 07/12/2018 [facility] Motrin 800 mg, 2 tab, Route: PO, Drug form: TAB, ONCE, Dosing Weight 96.989, kg, Priority: STAT, Start date: 07/11/18 23:10:00 CDT, Stop date: 07/11/18 23:10:00 CDTNotes: (Same as: Motrin) "Do Not Crush" Give with food. Inactive 07/12/2018 [facility] Prednisone 60 mg, 3 tab, Route: PO, Drug form: TAB, ONCE, Dosing Weight 96.989, kg, Priority: STAT, Start date: 07/11/18 23:10:00 CDT, Stop date: 07/11/18 23:10:00 CDTNotes: Take with food. Inactive 07/12/2018 [facility] Albuterol 0.833 MG/ML / Ipratropium [place] 0.167 MG/ML Inhalant Solution [DuoNeb] 3 ml, Route: NEB, Drug Form: SOLN, Dosing Weight 96.989, kg, ONCE, STAT, Start date: 07/11/18 23:10:00 CDT, Stop date: 07/11/18 23:10:00 CDTNotes: (Same as: Duoneb) Inactive 07/12/2018 [facility] Clonidine Hydrochloride 0.1 MG Oral Tablet 0.1 mg, Route: PO, Drug form: TAB, ONCE, Dosing Weight 90, kg, Priority: STAT, Start date: 12/09/16 15:50:00 CDT, Stop date: 12/09/16 15:50:00 CDT Inactive 12/09/2016 [facility] tramadol hydrochloride 50 MG Oral Tablet 50 mg=1 tab, PO, Q6H, PRN Pain, X 10 day, # 12 tab, 0 Refill(s) Active 12/09/2016 [facility] Ibuprofen 800 mg, 2 tab, Route: PO, Drug form: TAB, ONCE, Dosing Weight 95.455, kg, Priority: STAT, Start date: 12/09/16 14:47:00 CDT, Stop date: 12/09/16 14:47:00 CDTNotes: (Same as: Meena) "Do Not Crush" Give with food. Inactive 12/09/2016 [facility] Flexeril 10 mg, 1 tab, Route: PO, Drug form: TAB, ONCE, Dosing Weight 95.455, kg, Priority: STAT, Start date: 12/09/16 14:47:00 CDT, Stop date: 12/09/16 14:47:00 CDTNotes: (Same As: Flexeril) Inactive 12/09/2016 [facility] Acetaminophen 325 MG / Hydrocodone Bitartrate 10 MG Oral Tablet [[place] 10/325] 1 tab, Route: PO, Drug Form: TAB, Dosing Weight 95.455, kg, ONCE, STAT, Start date: 12/09/16 14:47:00 CDT, Stop date: 12/09/16 14:47:00 CDTNotes: Do not exceed 4gm/day of acetaminophen. (Same as: [place] 325/10) Inactive 12/09/2016 [facility] Soma 1 tablet as needed Orally Active 350 MG Orally TID prn spasm [facility] 07/20/2015 [facility] Hydroxychloroquine Sulfate 2 tabs Orally Active 200 MG Orally Once a day [facility] 07/20/2015 [facility] Sulfasalazine 2 tablet Orally Active 500 MG Orally every 12 hrs [facility] 01/19/2015 [facility] Cyclobenzaprine hydrochloride 10 MG Oral Tablet [Flexeril] 10 mg, PO, TID, PRN Muscle Spasm, X 3 day, # 10 tab, 0 Refill(s) Active 01/03/2015 [facility] {21 (Methylprednisolone 4 MG Oral Tablet [Medrol]) } Pack [Medrol Dosepak] See Instructions, PO, Take by mouth as directed on label., X 6 day, # 1 Pack, 0 Refill(s)Special Instructions: Take by mouth as directed on label. Active 01/03/2015 [facility] Acetaminophen 300 MG / Codeine Phosphate 30 MG Oral Tablet [Tylenol with Codeine #3] 1 - 2 tab, PO, Q4H, PRN Pain, X 5 day, # 15 tab, 0 Refill(s) Active 01/03/2015 [facility] Motrin 800 mg, 2 tab, Route: PO, Drug form: TAB, ONCE, Dosing Weight 95.455, kg, Priority: STAT, Start date: 01/02/15 20:05:00, Stop date: 01/02/15 20:05:00Notes: (Same as: Motrin) "Do Not Crush" Give with food. Inactive 01/03/2015 [facility] Acetaminophen 325 MG / Hydrocodone Bitartrate 5 MG Oral Tablet [[place] 5/325] 2 tab, Route: PO, Drug Form: TAB, Dosing Weight 95.455, kg, ONCE, Start date: 01/02/15 20:05:00, Stop date: 01/02/15 20:05:00Notes: (Same as: [place] 325/5) Do not exceed 4gm/day of acetaminophen. Inactive 01/03/2015 [facility] Dexamethasone 10 mg, 1 mL, Route: IM, Drug form: INJ, ONCE, Dosing Weight 95.455, kg, Priority: STAT, Start date: 01/02/15 20:05:00, Stop date: 01/02/15 20:05:00Notes: MEDICATION WASTE Product Size: 10 mg Product Wasted: ___ mg Inactive 01/03/2015 [facility] [id number]-Sxpavzo Prod as directed Orally Active 10-650 Orally tid [facility] Amlodipine Besylate 1 tablet Orally Active 10 MG Orally Once a day [facility] Toprol XL 1 tablet Orally Active 25 MG Orally Once a day [facility] Albuterol Sulfate Unknown Inhalation Active Inhalation prn [facility] Dexilant 1 capsule Orally Active 60 MG Orally Once a day [facility] Lisinopril 1 tablet Orally Active 20 MG Orally Once a day [facility] Norvasc 1 tablet Orally Active 10 MG Orally Once a day [facility] Crestor 1 tablet Orally Active 10 MG Orally Once a day [facility] Synthroid 1 tablet on an empty stomach in the morning Orally Active 25 MCG Orally Once a day [facility] Promethazine VC/Codeine Unknown NA Active [facility] Seroquel 1 tablet at bedtime Orally Active 50 MG Orally Once a day [facility] Drug Treatment Unknown - unknown Active [facility] Allergies, Adverse Reactions, Alerts Substance Category Reaction Severity Reaction type Status Date Reported Comments Source N.K.D.A. Adverse Reaction Info Not Available Adverse Reaction Active 07/21/2015 [facility] Allergies Unknown propensity to adverse reactions [facility] Immunizations Immunization Date Given Site Status Last Updated Comments Source Results Order Name Results Value Reference Range Date Interpretation Comments Source Chest 2 views DX Chest 2 views DX Clinical Indication: - cough. Comparison: None. TECHNIQUE: Frontal and lateral chest radiographs were performed. (2 views) FINDINGS: LUNGS: Normal lung volumes. No interstitial or airspace opacities. No pleural effusions or pneumothorax. HEART AND MEDIASTINUM: The heart is normal in size. The trachea is in the midline. The bilateral lavonne are unremarkable. OSSEOUS STRUCTURES: Right humeral prosthesis is noted. IMPRESSION: No acute cardiopulmonary disease. SL: [id number] 07/11/2018 - - Read by: Sherin Prieto MD Dictated Date/time: 07/11/18 23:51 Electronically Signed by: Sherin Prieto MD 07/11/18 23:51 FINAL REPORT [facility] URINE AND STOOL UA Color Yellow *NA* (12/09/16 3:03 PM) Yellow 12/09/2016 [facility] URINE AND STOOL UA Turbidity Clear (12/09/16 3:03 PM) Clear 12/09/2016 [facility] URINE AND STOOL UA Ketones Negative *NA* (12/09/16 3:03 PM) Negative 12/09/2016 [facility] URINE AND STOOL UA Blood Trace *ABN* (12/09/16 3:03 PM) Negative 12/09/2016 [facility] URINE AND STOOL UA Bili Negative *NA* (12/09/16 3:03 PM) Negative 12/09/2016 [facility] URINE AND STOOL UA Nitrite Negative (12/09/16 3:03 PM) Negative 12/09/2016 [facility] URINE AND STOOL UA Urobilinogen 0.2 EU/dL 0.1 - 1.0 12/09/2016 [facility] URINE AND STOOL UA Spec Grav 1.010 <=1.030 12/09/2016 [facility] URINE AND STOOL UA Protein Negative (12/09/16 3:03 PM) Negative 12/09/2016 [facility] URINE AND STOOL UA pH 8.0 5.0 - 8.0 12/09/2016 [facility] URINE AND STOOL UA Glucose Negative (12/09/16 3:03 PM) Negative 12/09/2016 [facility] URINE AND STOOL UA Leuk Est Negative (12/09/16 3:03 PM) Negative 12/09/2016 [facility] URINE AND STOOL Micro? Performed (12/09/16 3:03 PM) 12/09/2016 [facility] URINE AND STOOL UA WBC 0-2 /HPF None Seen /HPF 12/09/2016 [facility] URINE AND STOOL UA RBC 0-2 /HPF 0 - 2 12/09/2016 [facility] URINE AND STOOL UA Sq Epi Few /LPF Few /LPF 12/09/2016 [facility] URINE AND STOOL UA Bacteria Occasional /HPF None Seen /HPF 12/09/2016 [facility] URINE AND STOOL UA Mucus Few /LPF None Seen /LPF 12/09/2016 [facility] Spine cervical wo contrast CT Spine cervical wo contrast CT Patient Name: DEENA BLEVINS : 1960; Age: 56 years Female MR: [id number] Study: Spine cervical wo contrast CT 10/02/2016 10:12 AM CDT Clinical Indication: [place] - CT DLP - 408.4 mGycm - neck pain and low back pain. COMPARISON: Magnetic resonance imaging 05/23/2007. 02/10/2005. TECHNIQUE: Axial images are obtained through the cervical spine with coronal and sagittal reformatted sequences. FINDINGS: ALIGNMENT AND GENERAL ASSESSMENT: There is reversal of the normal cervical lordosis. The cervical spine vertebral body heights are maintained. Disc height loss is greatest at C4-C7 with anterior spurring. Cervical spurs span the C3-C6 levels. The prevertebral soft tissues are normal. DISC SPACES: C2-C3: Small broad-based disc bulge. There is no central stenosis. Patent right foramen. Mild left foraminal stenosis. Mild facet arthritic change. C3-C4: The disc is normal. There is no central stenosis. Patent right foramen. Mild left foraminal stenosis. Mild facet arthritic change. C4-C5: Central disc osteophyte complex. There is no central stenosis. Moderate right stenosis. Mild left foraminal stenosis. Mild facet arthritic change. C5-C6: Small disc osteophyte complex. Mild to moderate central stenosis. Mild bilateral foraminal stenosis. Mild facet arthritic change bilaterally. C6-C7: Small disc osteophyte complex. Mild central stenosis. Moderate right, mild left foraminal stenosis. Mild facet arthritic change. C7-T1: The disc is normal. There is no central stenosis. There is no foraminal stenosis. The facet joints are normal. IMPRESSION: 1. C5-C6 mild to moderate central stenosis with mild bilateral foraminal stenosis. 2. C6-C7 mild central stenosis with moderate right and mild left foraminal stenosis. 3. Multilevel spondylosis with foraminal narrowing and facet arthritic change as described above. SL: [id number] 10/02/2016 - - Read by: Maurice Maldonado MD Dictated Date/time: 10/03/16 07:30 Electronically Signed by: Maurice Maldonado MD 10/03/16 07:45 FINAL REPORT [facility] Spine lumbar wo contrast CT Spine lumbar wo contrast CT Patient Name: DEENA BLEVINS : 1960; Age: 56 years Female MR: [id number] Study: Spine lumbar wo contrast CT 10/02/2016 10:17 AM CDT Clinical Indication: [place] - CT DLP - 413.8 mGycm - low back pain and neck pain COMPARISON: Magnetic resonance imaging 03/23/2010. 05/23/2007. TECHNIQUE: Sequential trans-axial images were obtained with a multi-detector helical CT. Coronal and sagittal reconstructions were obtained. FINDINGS: ALIGNMENT AND GENERAL ASSESSMENT: There are 5 nonrib-bearing lumbar vertebral segments. There is normal alignment of the lumbar spine. The anterior and posterior paraspinal soft tissues are normal. There are no fractures or subluxations of the lumbar spine. There are no pars interarticularis defects and no spondylolisthesis. The facet joints are well aligned. DISC SPACES AND SOFT TISSUES: MRI has higher sensitivity and specificity for disc and soft tissue disease. T12-L1: The disc is normal. The facet joints appear normal. There is no central or foraminal stenosis. L1-L2: The disc is normal. The facet joints appear normal. There is no central or foraminal stenosis. L2-L3: Minimal disc bulging. Minimal facet arthritic change. No central stenosis. Minimal bilateral foraminal stenosis. L3-L4: Minimal disc bulging. The facet joints appear normal. No central stenosis. Minimal bilateral foraminal stenosis. L4-L5: Small broad-based disc bulge. Mild facet arthritic change. No central stenosis. Mild bilateral foraminal stenosis. L5-S1: Mild disc bulging. Mild facet arthritic change. No central stenosis. Mild bilateral foraminal stenosis. If there is further concern, CT myelogram or MRI of the lumbar spine may be performed for complete assessment. IMPRESSION: Multilevel disc bulging with foraminal stenosis greatest at the L4-L5 and L5-S1 levels. SL: [id number] 10/02/2016 - - Read by: Maurice Maldonado MD Dictated Date/time: 10/03/16 08:29 Electronically Signed by: Maurice Maldonado MD 10/03/16 08:40 FINAL REPORT [facility] Vital Signs Vital Sign Value Date Comments Source Heart Rate 77 07/12/2018 [facility] Systolic (mm Hg) 175 07/12/2018 [facility] Diastolic (mm Hg) 85 07/12/2018 [facility] Heart Rate 71 07/12/2018 [facility] Respitory Rate 20 07/12/2018 [facility] Systolic (mm Hg) 203 07/12/2018 [facility] Diastolic (mm Hg) 96 07/12/2018 [facility] Systolic (mm Hg) 204 07/12/2018 [facility] Diastolic (mm Hg) 106 07/12/2018 [facility] Heart Rate 66 07/12/2018 [facility] Respitory Rate 20 07/12/2018 [facility] Weight 96.989 07/11/2018 [facility] Height 177.8 cm 07/11/2018 [facility] BMI Calculated 30.68 07/11/2018 [facility] Respitory Rate 19 07/11/2018 [facility] Temperature Oral (F) 98.8 F 07/11/2018 [facility] Respitory Rate 18 12/09/2016 [facility] Heart Rate 92 12/09/2016 [facility] Systolic (mm Hg) 186 12/09/2016 [facility] Diastolic (mm Hg) 85 12/09/2016 [facility] Respitory Rate 18 12/09/2016 [facility] Heart Rate 99 12/09/2016 [facility] Systolic (mm Hg) 194 12/09/2016 [facility] Diastolic (mm Hg) 90 12/09/2016 [facility] Weight 90 12/09/2016 [facility] BMI Calculated 28.47 12/09/2016 [facility] Height 177.8 cm 12/09/2016 [facility] Heart Rate 97 12/09/2016 [facility] Systolic (mm Hg) 184 12/09/2016 [facility] Diastolic (mm Hg) 94 12/09/2016 [facility] Temperature Oral (F) 98.9 F 12/09/2016 [facility] Respitory Rate 18 12/09/2016 [facility] Height 66 07/21/2015 [facility] Diastolic (mm Hg) 95 07/21/2015 [facility] Systolic (mm Hg) 143 07/21/2015 [facility] Weight 196 07/21/2015 [facility]ajam Height 66 04/21/2015 [facility] Diastolic (mm Hg) 102 04/21/2015 [facility] Systolic (mm Hg) 200 04/21/2015 [facility] Weight 201.4 04/21/2015 [facility] Respitory Rate 18 01/03/2015 [facility] Systolic (mm Hg) 175 01/03/2015 [facility] Diastolic (mm Hg) 91 01/03/2015 [facility] Temperature Oral (F) 98.6 F 01/03/2015 [facility] Heart Rate 79 01/03/2015 [facility] Temperature Oral (F) 98.2 F 01/03/2015 [facility] Systolic (mm Hg) 154 01/03/2015 [facility] Diastolic (mm Hg) 86 01/03/2015 [facility] Heart Rate 82 01/03/2015 [facility] Respitory Rate 18 01/03/2015 [facility] Encounters Location Location Details Encounter Type Encounter Number Reason For Visit Attending Provider ADM Date DC Date Status Source [facility] pain contract follow up [id number] 07/20/2014 07/20/2014 [facility] pain contract follow up [id number] 07/20/2014 07/20/2014 [facility] pain contract follow up [id number] 07/20/2014 07/20/2014 [facility] Follow up Routine [id number] 10/20/2014 10/20/2014 [facility] Follow up Routine [id number] 10/20/2014 10/20/2014 [facility] Follow [facility] Routine [id number] 10/20/2014 10/20/2014 [facility]shaw [facility] [id number] Pamela Leblanc 01/03/2015 01/03/2015 [facility] FOLLOW UP [id number] 01/19/2015 01/19/2015 [facility] FOLLOW UP [id number] 01/19/2015 01/19/2015 [facility] FOLLOW UP [id number] 01/19/2015 01/19/2015 [facility] Hank MAN [id number] 01/21/2015 01/21/2015 [facility] Hank MAN [id number] 01/21/2015 01/21/2015 [facility] Hank MAN [id number] 01/21/2015 01/21/2015 [facility] Follow up [id number] 04/21/2015 04/21/2015 [facility] Follow up [id number] 04/21/2015 04/21/2015 [facility] Follow up [id number] 04/21/2015 04/21/2015 [facility] face to face eval [id number] 06/28/2015 06/28/2015 [facility] face to face eval [id number] 06/28/2015 06/28/2015 [facility] routine [id number] 07/21/2015 07/21/2015 [facility] [id number] 08/09/2016 08/11/2016 [facility] [id number] Aime Turner 10/02/2016 10/03/2016 [facility] [id number] Eitan Esquivelersen 12/09/2016 12/09/2016 [facility] Emergency [id number] Eitan Maldonado 07/11/2018 07/12/2018 [facility] Procedures Procedure Code Date Perfomer Comments Source Psychotherapy 45 (49-52*) min - 69858 (with patient and/or family member) 20280 08/05/2017 Carl PhD [facility] [id number] [facility] Cholecystectomy [id number] [facility] Hernia repair [id number] [facility] Rotator cuff repair [id number] [facility] section [id number] [facility] Cholecystectomy [id number] [facility] Hernia repair [id number] [facility] Nerve manipulation [id number] [facility] Rotator cuff repair [id number] [facility] section [id number] [facility] Cholecystectomy [id number] [facility] Hernia repair [id number] [facility] Rotator cuff repair [id number] [facility]
--- OUTSIDE RECORDS SUMMARY | 2018-07-26 14:03 | XMS REPORT | Summary of Care ---
Author Author [facility] Organization [facility] Address Unknown Phone Unavailable Encounter HQ Sascha(FIN) [phone] Date(s): 07/11/18 - 07/12/18 [facility] [address] [place], [place] [address]- [phone] Encounter Diagnosis Acute bacterial bronchitis (Discharge Diagnosis) - 07/12/18 Discharge Disposition: Home or Self Care Attending Physician: Eitan Maldonado MD Vital Signs 1 2 3 Most recent to oldest [Reference Range]: 177.8 cm (07/11/18 3:30 PM) Height 98.8 DegF (07/11/18 3:30 PM) Temperature Oral [96.4-99.1 DegF] 175/85 mmHg *HI* (07/12/18 12:05 AM) 203/96 mmHg *HI* (07/11/18 11:35 PM) 204/106 mmHg *HI* (07/11/18 10:22 PM) Blood Pressure [90-140/60-90 mmHg] 20 BRMIN (07/11/18 11:35 PM) 20 BRMIN (07/11/18 10:22 PM) 19 BRMIN (07/11/18 3:30 PM) Respiratory Rate [14-20 BRMIN] 77 bpm (07/12/18 12:05 AM) 71 bpm (07/11/18 11:35 PM) 66 bpm (07/11/18 10:22 PM) Peripheral Pulse Rate [60-100 bpm] 96.989 kg (07/11/18 3:30 PM) Weight 30.68 m2 (07/11/18 3:30 PM) Body Mass Index Problem List Condition Effective Dates Status Health Status Informant FH: Active Hypercholesterolemia (Confirmed) Hx of Active sciatica(Confirmed) History of Resolved hyperthyroidism(Conf irmed) HTN - Active Hypertension(Confirm ed) Bilateral low back Active pain(Confirmed) Allergies, Adverse Reactions, Alerts Substance Reaction Severity Status NKDA Active Medications Azithromycin 5 Day Dose Pack 250 mg oral tablet See Instructions, Take 2 tablets by mouth the first day then 1 tablet by mouth d ays 2-5., X 5 day, # 6 tab, 0 Refill(s) Start Date: 07/12/18 Stop Date: 07/17/18 Status: Ordered DuoNeb inhalation solution 3 ml, Route: NEB, Drug Form: SOLN, Dosing Weight 96.989, kg, ONCE, STAT, Start d ate: 07/11/18 23:10:00 CDT, Stop date: 07/11/18 23:10:00 CDT Notes: (Same as: Duoneb) Start Date: 07/11/18 Stop Date: 07/11/18 Status: Completed Motrin 800 mg, 2 tab, Route: PO, Drug form: TAB, ONCE, Dosing Weight 96.989, kg, Priori ty: STAT, Start date: 07/11/18 23:10:00 CDT, Stop date: 07/11/18 23:10:00 CDT Notes: (Same as: Motrin)"Do Not Crush" Give with food. Start Date: 07/11/18 Stop Date: 07/11/18 Status: Completed Mucinex 600 mg oral tablet, extended release 600 mg=1 tab, PO, Q12H, X 7 day, # 14 tab, 0 Refill(s) Start Date: 07/12/18 Stop Date: 07/19/18 Status: Ordered predniSONE 60 mg, 3 tab, Route: PO, Drug form: TAB, ONCE, Dosing Weight 96.989, kg, Priorit y: STAT, Start date: 07/11/18 23:10:00 CDT, Stop date: 07/11/18 23:10:00 CDT Notes: Take with food. Start Date: 07/11/18 Stop Date: 07/11/18 Status: Completed predniSONE 20 mg oral tablet 40 mg=2 tab, PO, Daily, X 5 day, # 10 tab, 0 Refill(s) Start Date: 07/12/18 Stop Date: 07/17/18 Status: Ordered ProAir HFA 90 mcg/inh inhalation aerosol with adapter 2 puff, INHALER, Q4H, PRN wheezing, coughing, or shortness of breath, # 1 ea, 0 Refill(s) Start Date: 07/12/18 Status: Ordered tramadol 50 mg oral tablet 50 mg, Route: PO, Drug form: TAB, ONCE, Dosing Weight 96.989, kg, Priority: STAT , Start date: 07/11/18 23:46:00 CDT, Stop date: 07/11/18 23:46:00 CDT Start Date: 07/11/18 Stop Date: 07/11/18 Status: Completed Results No data available for this section Immunizations No data available for this section Procedures Procedure Date Related Diagnosis Body Site Status section Completed Cholecystectomy Completed Hernia repair Completed Nerve manipulation Completed Rotator cuff repair Completed Social History Social History Type Response Substance Abuse Use: None. Alcohol Never Smoking Status Current every day smoker; Exposure to Tobacco Smoke None; Cigarette Smoking Last 365 Days Yes; Reg Smoking Cessation Counseling No entered on: 07/11/18 Assessment and Plan No data available for this section
--- OUTSIDE RECORDS SUMMARY | 2018-07-26 14:03 | XMS REPORT ---
Author Author Admin, Rosine Organization [facility] Address Unknown Phone Unavailable Allergies, Adverse Reactions, Alerts Allergy Name Reaction Description Start Date Severity Status Provider Allergies Unknown Conditions or Problems Problem Name Problem Code Onset Date Status Entry Date Provider Comment Standard Description Annotate Panic Disorder w/o Agoraphobia 300.01 Active Franny Henry PhD Panic disorder without agoraphobia Medication List Medication Instructions Start Date Stop Date Generic Name NDC Status Provider Patient Instruction Drug Treatment Unknown - unknown Procedures Code Procedure Name Date Entry Date Standard Description CPT-23116 Psychotherapy 45 (38-52*) min - 11974 (with patient and/or family member) 12:41:36 CDT
--- OUTSIDE RECORDS SUMMARY | 2018-07-26 14:03 | XMS REPORT ---
Author Author [facility] Organization [facility] Address Unknown Phone Unavailable Care Team Providers Care Reports Developer Name Role Phone SARAH GRAY Unavailable Unavailable Payers Payer Name Policy Type Policy Number Effective Date Expiration Date Problems This patient has no known problems. Allergies, Adverse Reactions, Alerts Allergy Name Allergy Type Status Severity Reaction(s) Onset Date Inactive Date Treating Clinician Comments morphine DA Active MO 2013-12-17 00:00:00 Medications This patient has no known medications. Encounters Start Date/Time End Date/Time Encounter Type Admission Type Attending Clinicians Care Facility Care Department Encounter ID 2018-07-11 15:20:00 2018-07-11 15:20:00 Emergency E [id number] Results Test Description Test Time Test Comments Text Results Atomic Results Result Comments CHEST 2 VIEWS 2017-12-01 21:32:00 [facility] [address] [place] [address] Patient Name: DEENA BLEVINS MR #: [id number] : 1960 Age/Sex: 57/F Req #: [id number] Adm Physician: SARAH GRAY MD Ordered by: AMY CEBALLOS ASPHALT MIXER Report #: [id number] Location: [facility] Room/Bed: [place] [address] Procedure: [id number] DX/CHEST 2 VIEWS Exam Date: 12/01/17 Exam Time: 2100 REPORT STATUS: Signed EXAMINATION: CHEST 2 VIEWS INDICATION: COPD. COMPARISON: 07/04/2016 FINDINGS: TUBES and LINES: None. LUNGS: Lungs are not well inflated. There are bibasilar atelectasis. There is mild prominence of the central pulmonary vasculature, consistent with pulmonary venous congestion. PLEURA: No pleural effusion or pneumothorax. HEART AND MEDIASTINUM: Cardiac size is mildly enlarged. BONES AND SOFT TISSUES: No acute osseous lesion. Soft tissues are unremarkable. UPPER ABDOMEN: No free air under the diaphragm. IMPRESSION: No acute thoracic abnormality. Signed by: Dr. Ian Frederick M.D. on 12/01/2017 9:33 PM Dictated By: IAN NATHAN MD 32 Transcribed By: PATSY on 12/01/172132 COPY TO: AMY CEBALLOS NP
[2018-07-26] MEDS ORDERED: IBUPROFEN 400 MG TAB PO ONE (14:15)
[2018-07-26] MEDS ORDERED: CEFTRIAXONE SOD 1 GM VIAL IM ONE (14:30)
--- NOTE | 2018-07-26 14:38 | NUR ---
1430- Rocephin 1G IM to RT gluteal. Patient césar well
== END 2018-07-26 14:43 | disposition home or self-care (01) ==
LOC: ER 13:58
DX: R05 Cough (principal); J01.00 Acute maxillary sinusitis, unspecified; I10 Essential (primary) hypertension; E11.9 Type 2 diabetes mellitus without complications
CPT/HCPCS: 99282; J0696

== ENCOUNTER 2018-08-12 15:21 | Emergency (ER) | payer MEDICARE ==
[~2018-08-12] VITALS: Ht 177.8 cm; Wt 98.0 kg
--- OUTSIDE RECORDS SUMMARY | 2018-08-12 15:25 | XMS REPORT | Clinical Summary ---
Author Author [facility] Organization [facility] Address Unknown Phone Unavailable Care Team Providers Care Process Safety Engineering Technologist Name Role Phone PCP Unavailable Allergies Not [...] Not on file Results Not on fileafter 08/11/2017 Insurance Payer Benefit Subscriber ID Type Phone Address Plan / Group MEDICARE MEDICARE A xxxxxxxxxx Medicare B MEDICAID MEDICAID xxxxxxxxx Medicaid OF [place]
--- NOTE | 2018-08-12 18:19 | Diagnostic Imaging Report ---
Exam: Right shoulder radiographs Indication: Right shoulder pain Comparisons: None Findings: 3 views of the right shoulder. No priors are available for comparison. A 3 mm curvilinear opacity just medial to the right proximal humerus may be from prior procedure. Status post total right shoulder arthroplasty. No evidence of hardware failure or loosening. Mild degenerative changes of the acromial clavicular joint. Regional soft tissues are unremarkable. Impression: No acute osseous abnormalities. Right total shoulder arthroplasty. Signed by: Maurice Dorsey MD on 08/12/2018 6:16 PM
== END 2018-08-12 18:30 | disposition home or self-care (01) ==
LOC: ER 15:21
DX: S46.111A Strain of muscle, fascia and tendon of long head of biceps, right arm, initial encounter (principal); X58.XXXA Exposure to other specified factors, initial encounter; Z96.611 Presence of right artificial shoulder joint; I10 Essential (primary) hypertension; J44.9 Chronic obstructive pulmonary disease, unspecified; E03.9 Hypothyroidism, unspecified; E78.5 Hyperlipidemia, unspecified; Z79.82 Long term (current) use of aspirin
CPT/HCPCS: 99283

== ENCOUNTER → 2024-10-07 | Day surgery (SDC) | payer MEDICARE ==
[2024-10-02 15:56] LABS: BASOPHILS # (AUTO) 0.1 (0.0-0.1); BASOPHILS % 0.7 % (0.0-1.0); EOSINOPHILS # (AUTO) 0.1 (0.0-0.4); EOSINOPHILS % 1.4 % (0.0-6.0); HEMATOCRIT 40.5 % (34.2-44.1); HEMOGLOBIN 13.3 g/dL (12.0-16.0); LYMPHOCYTES # (AUTO) 2.5 (1.0-3.2); LYMPHOCYTES % 33.3 % (18.0-39.1); MEAN CORPUSCULAR HEMOGLOBIN 31.9 pg (28-32); MEAN CORPUSCULAR HGB CONC 32.8 g/dL (31-35); MEAN CORPUSCULAR VOLUME 97.1 fL (81-99); MONOCYTES # (AUTO) 0.7 (0.2-0.8); MONOCYTES % 9.2 % (4.4-11.3); NEUTROPHILS # (AUTO) 4.1 (2.1-6.9); NEUTROPHILS % 55.1 % (38.7-80.0); PLATELET COUNT 316 x10e3/uL (140-360); RED BLOOD COUNT 4.17 x10e6/uL (3.6-5.1); RED CELL DISTRIBUTION WIDTH 11.9 % (11.7-14.4); WHITE BLOOD COUNT 7.39 x10e3/uL (4.8-10.8)
[2024-10-02 16:17] LABS: ANION GAP 17.8 mmol/L (8-16); CALCIUM 9.4 mg/dL (8.4-10.2); CREATININE, SERUM 0.79 mg/dL (0.57-1.11); POTASSIUM 3.8 mmol/L (3.5-5.1)
[2024-10-02 18:54] LABS: EOSINOPHILS % (MANUAL) 1 % (0-7); LYMPHOCYTES % (MANUAL) 27 % (19-48); MONOCYTES % (MANUAL) 9 % (3.4-9.0); NEUTROPHILS % (MANUAL) 63 % (40-74); PLATELET ESTIMATE ADEQUATE; PLATELET MORPHOLOGY COMMENT NORMAL; RBC MORPHOLOGY COMMENT NORMAL
[~2024-10-07] MED LIST changes: +COREG12.5 MG PO; +FENTANYL CITRATE/PF 100MCG/2 ML INJ ONE; +LANTUS 3ML100 UNITS/; +LEVOTHYROXINE50 MCG PO; +LIDOCAINE HCL 2% LOCAL INJ 5 ML SDV VIAL INJ ONE; +LIDOCAINE PAIN1 EACH; +MIDAZOLAM HCL 2 MG/2 ML VIAL ONE; +ONDANSETRON HCL INJ 2MG/ML 2ML 2 MG/ML VIAL ONE; +PROPOFOL IV EMULSION 10 MG/ML 20 ML VIAL ONE
[2024-10-07] MEDS: LACTATED RINGER'S 1,000 ML ONE (06:54)
[2024-10-07 07:49] VITALS: TEMP 97.6
[2024-10-07 08:20] VITALS: BP 123/73; PULSE 71; RESP 16; O2SAT 98
== END | disposition home or self-care (01) ==
LOC: OR 05:44
PROVIDERS: ATTEND Specialist
DX: M16.0 Bilateral primary osteoarthritis of hip (principal); M54.50 Low back pain, unspecified; I11.0 Hypertensive heart disease with heart failure; I50.9 Heart failure, unspecified; E78.00 Pure hypercholesterolemia, unspecified; J44.9 Chronic obstructive pulmonary disease, unspecified; Z87.891 Personal history of nicotine dependence; E11.9 Type 2 diabetes mellitus without complications; Z79.4 Long term (current) use of insulin; G47.33 Obstructive sleep apnea (adult) (pediatric); K21.9 Gastro-esophageal reflux disease without esophagitis; E03.9 Hypothyroidism, unspecified; F41.9 Anxiety disorder, unspecified; Z91.81 History of falling; M06.9 Rheumatoid arthritis, unspecified; R94.31 Abnormal electrocardiogram [ECG] [EKG]; Z01.810 Encounter for preprocedural cardiovascular examination; Z01.812 Encounter for preprocedural laboratory examination; Z01.818 Encounter for other preprocedural examination; Z79.899 Other long term (current) drug therapy; Z79.52 Long term (current) use of systemic steroids
CPT/HCPCS: 20610; 36415 ×2; 71046; 77002; 80048; 82948; 85025; 93005; J2003; J2250; J2405; J2704; J3010; J7121